=== PATIENT | male | born 1950 | race Caucasian/White ===

== ENCOUNTER 2016-10-22 16:44 | Inpatient (IN) | payer OTHER ==
[~2016-10-22] VITALS: Ht 180.3 cm; Wt 95.8 kg
[~2016-10-22 16:44] MED LIST: ALEVE220 MG PO; BACTRIM,SEPT1 TABLET PO; INDOCIN50 MG PO; KEFLEX500 MG PO; NAPROSYN500 MG PO; ULTRAM50 MG PO
[2016-10-22] MEDS ORDERED: INDOCIN50 MG PO (17:15)
[2016-10-22 17:35] LABS: BASOPHIL COUNT 0.1 K/uL (0-0.1); EOSINOPHIL (%) 1.7 % (0-5); EOSINOPHIL COUNT 0.1 K/uL (0-0.3); HEMATOCRIT 45.6 % (38.0-50.0); IMMATURE GRANULOCYTE (%) 0.3 % (0.0-0.7); INSTRUMENT ABS NEUTROPHIL CT 3.3 K/uL; LYMPHOCYTE COUNT 2.8 K/uL (1.0-2.8); MCH 31.2 PG (29.0-34.0); MCHC 34.2 G/DL (30.0-36.0); MCV 91.2 FL (86-99); MEAN PLAT.VOLUME 10.3 uM^3 (9.0-12.4); MONOCYTE (%) 9.5 % (3-12); MONOCYTE COUNT 0.7 K/uL (0-0.8); NEUTROPHIL (%) 47.8 % (45-76); NEUTROPHIL COUNT 3.3 K/uL (1.8-6.4); PLATELET COUNT 200 K/uL (156-360); RBC DIS.WIDTH-CV 14.6 % (11.8-14.6); RBC DIS.WIDTH-SD 48.9 % (39-53)
[2016-10-22 17:45] LABS: CHLORIDE 106 mEq/L (99-109); POTASSIUM 4.2 mEq/L (3.7-5.4); SODIUM 138 mEq/L (136-147)
[2016-10-22 17:46] LABS: GLUCOSE 96 mg/dL (70-99)
[2016-10-22 17:48] LABS: ANION GAP 12 MEQ/L (2-14)
[2016-10-22 17:50] LABS: GFR ESTIMATE (CALCULATED) > 59 mL/min/
[2016-10-22 17:51] LABS: UREA NITROGEN (BUN) 17 mg/dL (9-23)
[2016-10-22 18:02] LABS: PROTHROMBIN TIME 10.3 (9.2-11.2)
[2016-10-22 18:07] LABS: POINT-OF-CARE METER ID UU13113702
[2016-10-22 23:36] VITALS: BP 200/97
[2016-10-23 00:05] LABS: HDL CHOLESTEROL 57 MG/DL (Desirable>=40); LDL CHOLESTEROL 93 mg/dL (Desirable<100); NON-HDL CHOLESTEROL 106 mg/dL (Desirable<160); TOTAL CHOLESTEROL 163 mg/dL (Desirable<200); TRIGLYCERIDES 65 MG/DL (Normal: <150)
[2016-10-23 02:47] LABS: TROP-I INTERPRETATION NEGATIVE; TROPONIN-I < 0.01 ng/mL (0.0-0.30)
[2016-10-23 04:05] VITALS: BP 180/77
[2016-10-23 06:15] LABS: HEMATOCRIT 43.3 % (38.0-50.0); MCH 31.1 PG (29.0-34.0); MCHC 33.3 G/DL (30.0-36.0); MCV 93.5 FL (86-99); MEAN PLAT.VOLUME 10.4 uM^3 (9.0-12.4); PLATELET COUNT 196 K/uL (156-360); RBC DIS.WIDTH-CV 14.8 % (11.8-14.6); RBC DIS.WIDTH-SD 51.6 % (39-53); RED BLOOD COUNT 4.63 M/uL (4.00-5.50); WHITE BLOOD COUNT 8.6 K/uL (4.1-10.2)
[2016-10-23 07:13] LABS: TROP-I INTERPRETATION NEGATIVE; TROPONIN-I 0.01 ng/mL (0.0-0.30)
[2016-10-23 07:43] VITALS: BP 155/71
[2016-10-23 12:16] VITALS: BP 146/70
[2016-10-23 13:23] LABS: Estimated Average Glucose 97 mg/dL (70-123)
[2016-10-23 13:46] LABS: TROP-I INTERPRETATION NEGATIVE; TROPONIN-I 0.01 ng/mL (0.0-0.30)
[2016-10-23 16:07] VITALS: BP 110/75
[2016-10-23 20:00] VITALS: BP 169/69
[2016-10-24 00:11] VITALS: BP 169/81
[2016-10-24 03:57] VITALS: BP 161/76
[2016-10-24 06:53] LABS: ALKALINE PHOSPHATASE 63 IU/L (3-129); ANION GAP 9 MEQ/L (2-14); CHLORIDE 103 MEQ/L (99-109); GFR ESTIMATE (CALCULATED) > 59 mL/min/; GLUCOSE 92 mg/dL (70-99); POTASSIUM 4.1 MEQ/L (3.7-5.4); SAMPLE HEMOLYSIS CHECK 0; SAMPLE ICTERIC CHECK 0; SAMPLE LIPEMIA CHECK 0; SODIUM 135 MEQ/L (136-147); TOTAL BILIRUBIN 0.6 MG/DL (0.0-1.0); UREA NITROGEN (BUN) 15 mg/dL (9-23)
[2016-10-24 06:56] LABS: BASOPHIL COUNT 0.1 K/uL (0-0.1); EOSINOPHIL (%) 2.3 % (0-5); EOSINOPHIL COUNT 0.2 K/uL (0-0.3); IMMATURE GRANULOCYTE (%) 0.3 % (0.0-0.7); INSTRUMENT ABS NEUTROPHIL CT 3.4 K/uL; LYMPHOCYTE COUNT 3.1 K/uL (1.0-2.8); MCH 31.9 PG (29.0-34.0); MCHC 34.5 G/DL (30.0-36.0); MCV 92.5 FL (86-99); MONOCYTE (%) 9.7 % (3-12); MONOCYTE COUNT 0.7 K/uL (0-0.8); NEUTROPHIL (%) 44.9 % (45-76); NEUTROPHIL COUNT 3.4 K/uL (1.8-6.4); RBC DIS.WIDTH-CV 15.3 % (11.8-14.6); RBC DIS.WIDTH-SD 51.2 % (39-53); RED BLOOD COUNT 4.54 M/uL (4.00-5.50); WHITE BLOOD COUNT 7.5 K/uL (4.1-10.2)
[2016-10-24 07:05] LABS: MEAN PLAT.VOLUME 12.9 uM^3 (9.0-12.4); PLATELET COUNT 388 K/uL (156-360)
[2016-10-24 07:42] VITALS: BP 187/84
[2016-10-24 19:45] VITALS: BP 189/88
[2016-10-24 22:29] VITALS: BP 150/71
[2016-10-25 03:15] VITALS: BP 164/76
[2016-10-25 07:26] VITALS: BP 150/80
[2016-10-25] MEDS ORDERED: FAMOTIDINE20 MG PO (07:59)
[2016-10-25] MEDS ORDERED: ASPIRIN EC325 MG PO (07:59)
[2016-10-25] MEDS ORDERED: METOPROLOL SUCC25 MG PO (07:59)
[2016-10-25] MEDS ORDERED: PRAVASTATIN SOD40 MG PO (07:59)
[2016-10-25] MEDS ORDERED: ENALAPRILA IV (07:59)
[2016-10-25] MEDS ORDERED: NICOTINE PATCH1 EACH TD (07:59)
[2016-10-25 11:27] VITALS: BP 192/73
== END 2016-10-25 14:58 | disposition home or self-care (01) | DRG 66 ==
LOC: EME 16:44 → EDOF 20:29 → 5SOUTH 20:29
PROVIDERS: Emergency Medicine; Hospitalist; Nurse Practitioner Adult Health; Pediatrics
DX: I63.9 Cerebral infarction, unspecified (principal); I10 Essential (primary) hypertension; I16.0 Hypertensive urgency; F32.9 Major depressive disorder, single episode, unspecified; F17.200 Nicotine dependence, unspecified, uncomplicated; R20.9 Unspecified disturbances of skin sensation
CPT/HCPCS: 70450; 70551; 80048; 80053; 80061; 82607; 82746; 82948; 83036; 84484; 85025; 85027; 85610; 93005; 93306; 93880; 99281; 99285; J1644